=== PATIENT | female | born 1940 | race Caucasian/White ===

== ENCOUNTER → 2021-07-30 10:37 | Outpatient (BNVA) | payer MEDICARE, BC, SELFPAY | PROVIDERS: Visit Provider Specialist | DX: M19.072 Primary osteoarthritis, left ankle and foot (principal); M17.12 Unilateral primary osteoarthritis, left knee; M21.42 Flat foot [pes planus] (acquired), left foot | CPT/HCPCS: 73560; 73565; 73610 ==